=== PATIENT | male | born 1970 | race Hispanic/Latino ===

== ENCOUNTER 2017-12-31 04:33 | Inpatient (IN) | payer MEDICAID ==
--- NOTE | 2017-12-31 04:59 | ED PDOC ---
Arrival/HPI - General Historian: Patient - History of Present Illness Narrative History of Present Illness (Text): 12/31/17 05:03 Patient is a past medical history of hypertension, hyperlipidema, anxiety and alcohol abuse (>12 beers daily) presenting to the emergency room with a complaint of left shoulder pain, anxiety and uncontrollable shaking. He was attempting to sleep but was unable to because he started to feel anxious. He noticed he also shaking uncontrollably in his hands. He has a history of anxiety but has never experienced shaking in his hands before. He is also experiencing sharp, left shoulder that radiates down his arm. This pain started tonight, he denies any trauma or injury to the shoulder. He is nauseous and vomited once prior to coming to the hospital. He is experiencing hot and cold flashes, episodes of diaphoresis and diarrhea. He normally drinks >12 beers a day but only had 2 beers yesterday earlier in the day. Last drink approximately 13 hours ago. He has been through alcohol withdrawal before and has experienced seizures in the past during withdrawal (last seizure 2 years ago). Social: Patient lives in [place], [place] but is currently visiting a friend in [place]. Time/Duration: 1-3 hours Symptom Onset: Sudden Symptom Course: Worsening Quality: Other (shaking) <Albert Kim - Last Filed: 12/31/17 06:27> <Dmitriy Kapoor - Last Filed: 12/31/17 06:43> - General Time Seen by Provider: 12/31/17 04:44 Past Medical History - Provider Review Nursing Documentation Reviewed: Yes - Cardiac Hx Cardiac Disorders: Yes Hx Hypertension: Yes - Pulmonary Hx Respiratory Disorders: Yes Hx Sleep Apnea: Yes - Psychiatric Hx Psychophysiologic Disorder: Yes Hx Anxiety: Yes Hx Substance Use: No (DENIES) - Anesthesia Hx Anesthesia: No <Albert Kim - Last Filed: 12/31/17 06:27> Family/Social History - Physician Review Nursing Documentation Reviewed: Yes Family/Social History: Unknown Family HX Smoking Status: Heavy Smoker > 10 Cigarettes Daily Hx Alcohol Use: Yes Frequency of alcohol use: Few days per week Hx Substance Use: No (DENIES) <Albert Kim - Last Filed: 12/31/17 06:27> Allergies/Home Meds <Albert Kim - Last Filed: 12/31/17 06:27> <Dmitriy Kapoor - Last Filed: 12/31/17 06:43> Allergies/Adverse Reactions: Allergies No Known Allergies Allergy (Verified 12/31/17 04:34) Home Medications: Home Meds Medication Instructions Recorded Confirmed RX: Unobtainable 12/31/17 12/31/17 Review of Systems - Physician Review All systems were reviewed & negative as marked: Yes - Review of Systems Constitutional: Fevers Eyes: absent: Vision Changes ENT: Normal. absent: Sore Throat, Rhinorrhea Respiratory: Normal. absent: SOB, Cough, Sputum, Wheezing Cardiovascular: Normal. absent: Chest Pain, Palpitations, Edema, Calf Pain, MONIQUE, Syncope Gastrointestinal: Abdominal Pain, Diarrhea, Nausea, Vomiting. absent: Constipation, Appetite Changes Genitourinary Male: Normal. absent: Dysuria, Frequency, Hematuria Musculoskeletal: Normal Skin: Normal Neurological: Normal. absent: Headache, Dizziness Endocrine: Diaphoresis Hemo/Lymphatic: Normal. absent: Adenopathy Psychiatric: Anxiety <Albert Kim - Last Filed: 12/31/17 06:27> Physical Exam Vital Signs Reviewed: Yes Temperature: Afebrile Blood Pressure: Hypertensive Pulse: Tachycardic (104bpm on ekg) Respiratory Rate: Normal Appearance: Positive for: Other (Anxious ) Pain Distress: None Mental Status: Positive for: Alert and Oriented X 3 - Systems Exam Head: Present: Atraumatic, Normocephalic Pupils: Present: PERRL Extroacular Muscles: Present: EOMI Conjunctiva: Present: Normal Mouth: Present: Moist Mucous Membranes Nose (External): Present: Atraumatic Nose (Internal): Present: No Active Bleeding, Moist Neck: Present: Normal Range of Motion. No: Meningeal Signs, MIDLINE TENDERNESS, Paraspinal Tenderness Respiratory/Chest: Present: Clear to Auscultation, Good Air Exchange. No: Respiratory Distress, Accessory Muscle Use Cardiovascular: Present: Normal S1, S2, Tachycardic. No: Murmurs Abdomen: No: Tenderness, Distention, Peritoneal Signs, Rebound, Guarding Upper Extremity: Present: Normal Inspection, NORMAL PULSES. No: Cyanosis, Edema Lower Extremity: Present: Normal Inspection, NORMAL PULSES. No: Edema, CALF TENDERNESS Neurological: Present: GCS=15, CN II-XII Intact, Speech Normal, Other (hand tremors b/l) Skin: Present: Warm, Dry, Normal Color. No: Rashes Lymphatic: No: Cervical Adenopathy Psychiatric: Present: Alert, Oriented x 3, Normal Insight, Normal Concentration, Anxious <Albert Kim - Last Filed: 12/31/17 06:27> Vital Signs Temp Pulse Resp BP Pulse Ox 12/31/17 05:08 98.2 F 81 18 145/92 H 96 12/31/17 04:54 98.1 F 107 H 20 151/118 H 96 <KevinDmitriy gotti - Last Filed: 12/31/17 06:43> Medical Decision Making ED Course and Treatment: 12/31/17 04:55 Patient is a 47 year old male with a past medical history of alcohol abuse, anxiety, hypertension and hyperlipidemia presenting to the emergency with shaking and anxiety. Patient states he normally drinks 12 beers or more daily, only had 2 yesterday. Last drink 13 hours ago. hx of alcohol withdrawal with seizures (last seizure 2 years ago) Patient appears to be withdrawing from alcohol Will give Ativan 1mg IVP Labs, EKG and CXR 12/31/17 06:10 Discussed labs with patient. Patient had improvement in tremors but tremors still present. Librium 25mg PO given Hospitalist called to admit patient for alcohol withdrawal. 12/31/17 06:[address] Patel (Hospitalist) in detail. He has accepted patient onto hospitalist service. Patient admitted to remote telemetry for alcohol withdrawal. Re-evaluation Time: 06:10 - Lab Interpretations Lab Results: Laboratory Results - last 24 hr 12/31/17 12/31/17 12/31/17 05:06 05:06 05:06 WBC 9.6 RBC 4.55 Hgb 14.8 Hct 43.1 MCV 94.7 MCH 32.5 MCHC 34.3 RDW 13.4 Plt Count 312 MPV 8.5 Gran % 58.3 Lymph % (Auto) 25.9 Jennings % (Auto) 13.3 H Eos % (Auto) 2.0 Baso % (Auto) 0.5 Gran # 5.57 Lymph # (Auto) 2.5 Jennings # (Auto) 1.3 H Eos # (Auto) 0.2 Baso # (Auto) 0.05 Sodium 139 Potassium 3.5 L Chloride 106 Carbon Dioxide 25 Anion Gap 11 BUN 15 Creatinine 0.7 L Est GFR ( Amer) > 60 Est GFR (Non-Af Amer) > 60 Random Glucose 104 Calcium 8.8 Magnesium 1.8 Total Bilirubin 0.7 AST 47 ALT 62 H Alkaline Phosphatase 75 Troponin I < 0.01 Total Protein 6.7 Albumin 4.1 Globulin 2.6 Albumin/Globulin Ratio 1.6 Lipase 307 H Alcohol, Quantitative < 10 I have reviewed the lab results: Yes - RAD Interpretation Narrative RAD Interpretations (Text): CXR - no acute disease. Radiology Orders: 12/31/17 04:53 CHEST PORTABLE [RAD] Stat Lithopone Charger: ED Physician - EKG Interpretation EKG Interpretation (Text): 12/31/17 06:04 Sinus tach @104bpm, normal axis, poor r wave progression, no acute ST segment elevations or depressions. - no prior ekg for comparison. Interpreted by ED Physician: Yes Type: 12 lead EKG Comparison: No previous EKG avail. - Medication Orders Current Medication Orders: Lorazepam (Ativan) 1 mg IVP ONCE ONE; Protocol Stop: 12/31/17 04:54 <Albert Kim - Last Filed: 12/31/17 06:27> ED Course and Treatment: Impression: Pt seen and evaluated with electromedical equipment repairer. Aware and agree with HPI, clinical findings, plan, and management. Pt, whose past medical history includes hypertension, hyperlipidemia, anxiety, and alcohol abuse, presented for anxiety, shaking, and left shoulder pain. Pt's last alcoholic drink was yesterday afte rnoon. Plan: -- EKG -- Chest X-ray -- Labs, troponin, lipase, alcohol level -- Urinalysis, urine drug screen -- IV fluids -- Ativan -- Zofran -- Reassess and disposition - RAD Interpretation Radiology Orders: 12/31/17 04:53 CHEST PORTABLE [RAD] Stat - EKG Interpretation Interpreted by ED Physician: Yes Type: 12 lead EKG - Medication Orders Current Medication Orders: Sodium Chloride (Sodium Chloride 0.9%) 1,000 mls @ 999 mls/hr IV .Q1H1M STA Stop: 12/31/17 06:08 Last Admin: 12/31/17 05:14 Dose: 999 mls/hr eMAR Start Stop Document 12/31/17 05:14 RG (Rec: 12/31/17 05:15 [id number]) Intravenous Solution Start Date 12/31/17 Start Time 05:14 Discontinued Medications Lorazepam (Ativan) 1 mg IVP ONCE ONE; Protocol Stop: 12/31/17 04:54 Last Admin: 12/31/17 05:15 Dose: 1 mg IVP Administration Document 12/31/17 05:15 RG (Rec: 12/31/17 05:15 [id number]) Charges for Administration # of IVP Administrations 1 Ondansetron HCl (Zofran Inj) 4 mg IVP STAT STA Stop: 12/31/17 05:05 Last Admin: 12/31/17 05:17 Dose: 4 mg IVP Administration Document 12/31/17 05:17 (Rec: 12/31/17 05:17 [id number]) Charges for Administration # of IVP Administrations 1 <Dmitriy Kapoor - Last Filed: 12/31/17 06:43> - PA / SURGICAL INSTRUMENTS INSPECTOR / Resident Statement / has reviewed & agrees with the documentation as recorded. / has examined the patient and agrees with the treatment plan. <Dmitriy Kapoor - Last Filed: 12/31/17 06:43> Disposition/Present on Arrival - Present on Arrival Any Indicators Present on Arrival: No History of DVT/PE: No History of Uncontrolled Diabetes: No Urinary Catheter: No History of Decub. Ulcer: No History Surgical Site Infection Following: None - Disposition Have Diagnosis and Disposition been Completed?: Yes Disposition Time: 06:27 Patient Plan: Admission, Telemetry (remote) <Albert Kim - Last Filed: 12/31/17 06:27> <Dmitriy Kapoor - Last Filed: 12/31/17 06:43> - Disposition Diagnosis: Alcohol withdrawal Disposition: HOSPITALIZED Patient Problems: Current Active Problems Problem Status Onset Alcohol withdrawal Acute Condition: GUARDED
[2017-12-31] MEDS ORDERED: Sodium Chloride 0.9% 1,000 ML IV STA (05:08)
[2017-12-31 05:32] LABS: HEMOGLOBIN 14.8 g/dL (14.0-18.0); MEAN CELL VOLUME 94.7 fl (80.0-105.0); MEAN CORPUSCULAR HEMOGLOBIN 32.5 pg (25.0-35.0); MEAN CORPUSCULAR HGB CONC 34.3 g/dl (31.0-37.0); RBC 4.55 10^6/uL (3.5-6.1); RED CELL DISTRIBUTION WIDTH 13.4 % (11.5-14.5); WHITE BLOOD COUNT 9.6 10^3/ul (4.5-11.0)
[2017-12-31 05:33] LABS: BASO # 0.05 K/mm3 (0.0-2.0); BASO % 0.5 % (0.0-3.0); EOS # 0.2 (0.0-0.7); GRAN # 5.57 (1.4-6.5); GRAN % 58.3 % (50.0-68.0); LYMPH # 2.5 (1.2-3.4); LYMPH % 25.9 % (22.0-35.0); MEAN PLATELET VOLUME 8.5 fl (7.0-11.0); MONO # 1.3 (0.1-0.6); MONO % 13.3 % (1.0-6.0)
[2017-12-31 05:58] LABS: ALB/GLOB RATIO 1.6 (1.1-1.8); ALBUMIN 4.1 g/dL (3.0-4.8); ALT/SGPT 62 U/L (7-56); AST/SGOT 47 U/L (17-59); BLOOD UREA NITROGEN 15 mg/dL (7-21); CALCIUM 8.8 mg/dL (8.4-10.5); GFR NON-AFRICAN AMERICAN > 60; LIPASE 307 U/L (23-300)
[2017-12-31 06:08] LABS: TROPONIN I < 0.01 ng/mL
[2017-12-31] MEDS ORDERED: Multivitamin (MVI) 10 ML, Thiamine 100 MG, Folic Acid 1 MG in Sodium Chloride 0.9% 1,00... IV ONE (06:33)
[2017-12-31 06:39] LABS: URINE BILIRUBIN NEGATIVE (NEGATIVE); URINE BLOOD SMALL (NEGATIVE); URINE GLUCOSE (UA) NEGATIVE (NEGATIVE); URINE LEUKOCYTE ESTERASE NEGATIVE Leu/uL (NEGATIVE); URINE PROTEIN NEGATIVE mg/dL (<30 mg/dL); URINE UROBILINOGEN 0.2 E.U./dL (<1 E.U./dL)
[2017-12-31 06:49] LABS: URINE APPEARANCE CLEAR (CLEAR); URINE COLOR LIGHT YELLOW (YELLOW)
[2017-12-31 07:07] LABS: URINE BACTERIA SMALL (NEG); URINE EPITHELIAL CELLS 0 - 2 /hpf (0-5); URINE WBC 0 - 2 /hpf (0-6)
[2017-12-31 07:27] LABS: BARBITURATES, UR NEGATIVE (NEGATIVE); BENZODIAZEPINES, UR POSITIVE (NEGATIVE); OPIATES, UR NEGATIVE (NEGATIVE); PHENCYCLIDINE, UR NEGATIVE (NEGATIVE)
[2017-12-31] MEDS ORDERED: Potassium Chloride 40 mEq/30 ml LIQ UD PO ONE (07:48)
[2017-12-31] MEDS ORDERED: Magnesium Sulfate 2 gm/50 ml 2 GM/50 ML BAG IVPB ONE (07:48)
--- NOTE | 2017-12-31 08:38 | CP.PCM.HP ---
<Julio Jennings - Last Filed: 12/31/17 08:26> History of Present Illness - History of Present Illness History of Present Illness: Hospitalist Service H&P Julio Jennings, PGY-3 CC: Shortness of breath and tremors overnight This is a 47 yo M with PMH of hypertension, hyperlipidema, anxiety, alcohol abuse, and hx of seizures with alcohol withdrawal who presented to [facility] ED with complaint of anxiety, shortness of breath, and uncontrollable shaking while trying to sleep. Reports unable to fall asleep, which made him anxious, and then he noticed uncontrolled tremors in both hands and felt short of breath. He also complains of left shoulder pain travelling down his arm, not currently present, no clear trigger. Reports one episode of emesis after tremors began and persistent nausea, and denies hematemesis/bilious emesis; only describes emesis as "dark." Admits to chronic alcohol use (claims was off but started again, unable to state when restarted), up to 12 beers per day, but reports only 2 beers yesterday, last one at approx 4:30pm (1630). Denies current chest pain, shortness of breath, cough, hemoptysis, constipation, focal or generalized weakness, loss of sensation, vision changes. Admits to nausea, intermittent loose stools over last 2-3 days, and still some tremors present. Of note, patient was anxious throughout the interview and exam, asking if he was going to have a heart monitor while admitted, and when asked why, states his heart stopped once, and that he thinks he needs a pacemaker. Unable to provide further details about "heart stopping," including where and when it occurred. Also asked multiple times if med staff would be aware if he stopped breathing, stating that he stopped breathing once. Patient also poor historian, not able to relay what medications he is on, not sure what pharmacy he goes to. PMH: as above PSH: denies Soc Hx: Admits tobacco (1ppd for ~ 30 yrs), admits alcohol (up to 12 beers daily, last drink ~16 hrs prior), admits weekly marijuana, admits hx of cocaine but reports has been off for years, denies other illicits Fam Hx: pt unaware of family hx PMD: Dr. Etienne Present on Admission - Present on Admission Any Indicators Present on Admission: No History of DVT/PE: No History of Uncontrolled Diabetes: No Urinary Catheter: No Review of Systems - Review of Systems All systems: reviewed and no additional remarkable complaints except (as per HPI) Past Patient History - Past Social History Smoking Status: Heavy Smoker > 10 Cigarettes Daily - CARDIAC Hx Cardiac Disorders: Yes Hx Hypertension: Yes - PULMONARY Hx Respiratory Disorders: Yes Hx Sleep Apnea: Yes - PSYCHIATRIC Hx Psychophysiologic Disorder: Yes Hx Anxiety: Yes Hx Substance Use: No (DENIES) - SURGICAL HISTORY Hx Surgeries: No - ANESTHESIA Hx Anesthesia: No Meds Allergies/Adverse Reactions: Allergies Allergy/AdvReac Type Severity Reaction Status Date / Time No Known Allergies Allergy Verified 12/31/17 04:34 Physical Exam - Constitutional Appears: Non-toxic, No Acute Distress, Other (Anxious) - Head Exam Head Exam: ATRAUMATIC, NORMAL INSPECTION, NORMOCEPHALIC - Eye Exam Eye Exam: EOMI, Normal appearance. absent: Conjunctival injection, Scleral icterus Pupil Exam: absent: Fixed, Irregular - ENT Exam ENT Exam: Mucous Membranes Moist - Neck Exam Neck exam: Positive for: Full Rom, Normal Inspection. Negative for: Thyromegaly - Respiratory Exam Respiratory Exam: Clear to Auscultation Bilateral, NORMAL BREATHING PATTERN. absent: Accessory Muscle Use, Chest Wall Tenderness, Decreased Breath Sounds, Prolonged Expiratory Phase, Rales, Rhonchi, Wheezes, Respiratory Distress - Cardiovascular Exam Cardiovascular Exam: REGULAR RHYTHM, RRR, +S1, +S2. absent: Bradycardia, Tachycardia, Irregular Rhythm, JVD, +S4 Additional comments: HR 80's consistently on bedside monitor during interview and exam - GI/Abdominal Exam GI & Abdominal Exam: Normal Bowel Sounds, Soft. absent: Diminished Bowel Sounds, Distended, Firm, Hyperactive Bowel Sounds, Hypoactive Bowel Sounds, Rigid, Tenderness - Extremities Exam Extremities exam: Positive for: full ROM, normal capillary refill, normal inspection, pedal pulses present (+2 radials, dorsalis pedis, and posterior tibials bilaterally). Negative for: calf tenderness, joint swelling, pedal edema, tenderness - Back Exam Back exam: absent: CVA tenderness (L), CVA tenderness (R) - Neurological Exam Neurological exam: Alert, Oriented x3 Additional comments: awake and alert, following commands appropriately, moving all extremities spontaneously, bilateral UE tremor that appears exaggerated in R hand as compared to left, no asterixis elicited on exam, motor strength 5/5 in bilateral extremity pairs - Psychiatric Exam Psychiatric exam: Anxious - Skin Skin Exam: Dry, Intact, Normal Color, Warm Results - Vital Signs Recent Vital Signs: Last Vital Signs Temp 98.2 F 12/31/17 05:08 Pulse 87 12/31/17 06:33 Resp 189 H 12/31/17 06:33 BP 145/88 12/31/17 06:33 Pulse Ox 99 12/31/17 06:33 - Labs Result Diagrams: 12/31/17 05:06 12/31/17 05:06 Labs: Laboratory Results - last 24 hr 12/31/17 12/31/17 12/31/17 05:05 05:06 05:06 WBC 9.6 RBC 4.55 Hgb 14.8 Hct 43.1 MCV 94.7 MCH 32.5 MCHC 34.3 RDW 13.4 Plt Count 312 MPV 8.5 Gran % 58.3 Lymph % (Auto) 25.9 Gila % (Auto) 13.3 H Eos % (Auto) 2.0 Baso % (Auto) 0.5 Gran # 5.57 Lymph # (Auto) 2.5 Gila # (Auto) 1.3 H Eos # (Auto) 0.2 Baso # (Auto) 0.05 Sodium 139 Potassium 3.5 L Chloride 106 Carbon Dioxide 25 Anion Gap 11 BUN 15 Creatinine 0.7 L Est GFR ( Amer) > 60 Est GFR (Non-Af Amer) > 60 POC Glucose (mg/dL) 98 Random Glucose 104 Calcium 8.8 Magnesium 1.8 Total Bilirubin 0.7 AST 47 ALT 62 H Alkaline Phosphatase 75 Troponin I < 0.01 Total Protein 6.7 Albumin 4.1 Globulin 2.6 Albumin/Globulin Ratio 1.6 Lipase 307 H Urine Color Urine Appearance Urine pH Ur Specific [place] Urine Protein Urine Glucose (UA) Urine Ketones Urine Blood Urine Nitrate Urine Bilirubin Urine Urobilinogen Ur Leukocyte Esterase Urine RBC Urine WBC Ur Epithelial Cells Urine Bacteria Urine Other Urine Opiates Screen Urine Methadone Screen Ur Barbiturates Screen Ur Phencyclidine Scrn Ur Amphetamines Screen U Benzodiazepines Scrn U Oth Cocaine Metabols U Cannabinoids Screen Alcohol, Quantitative 12/31/17 12/31/17 12/31/17 05:06 06:19 06:19 WBC RBC Hgb Hct MCV MCH MCHC RDW Plt Count MPV Gran % Lymph % (Auto) Gila % (Auto) Eos % (Auto) Baso % (Auto) Gran # Lymph # (Auto) Gila # (Auto) Eos # (Auto) Baso # (Auto) Sodium Potassium Chloride Carbon Dioxide Anion Gap BUN Creatinine Est GFR ( Amer) Est GFR (Non-Af Amer) POC Glucose (mg/dL) Random Glucose Calcium Magnesium Total Bilirubin AST ALT Alkaline Phosphatase Troponin I Total Protein Albumin Globulin Albumin/Globulin Ratio Lipase Urine Color Light yellow Urine Appearance Clear Urine pH 6.0 Ur Specific [place] 1.025 Urine Protein Negative Urine Glucose (UA) Negative Urine Ketones Trace H Urine Blood Small H Urine Nitrate Negative Urine Bilirubin Negative Urine Urobilinogen 0.2 Ur Leukocyte Esterase Negative Urine RBC 2 - 5 Urine WBC 0 - 2 Ur Epithelial Cells 0 - 2 Urine Bacteria Small Urine Other Usperm Urine Opiates Screen Negative Urine Methadone Screen Negative Ur Barbiturates Screen Negative Ur Phencyclidine Scrn Negative Ur Amphetamines Screen Negative U Benzodiazepines Scrn Positive H U Oth Cocaine Metabols Negative U Cannabinoids Screen Positive H Alcohol, Quantitative < 10 Assessment & Plan - Assessment and Plan (Free Text) Assessment: This is a 47 yo M with PMH of hypertension, hyperlipidema, anxiety, alcohol abuse, and hx of seizures with alcohol withdrawal who presented to [facility] ED with complaint of anxiety, shortness of breath, and uncontrollable shaking while trying to sleep, likely all 2/2 alcohol withdrawal. He is being admitted for alcohol withdrawal. Plan: 1) Tremors/Anxiety/Emesis -ddx: EtOH withdrawal vs ACS vs anxiety itself vs substance abuse -UTox positive for marijuana and benzos, unable to account for presence of benzos as patient unaware of home meds -Trop x1 negative, EKG only notable for sinus tachy, and HR improved to 80's after ativan, so more likely tachy 2/2 withdrawal, less likely ACS Will repeat trop and EKG tomorrow AM -Alcohol level < 10 on arrival, and last reported drink ~16 hrs prior, so likely already withdrawing As per ED, improvement but no resolution of tremors with initial dose of Ativan given in ED Continue Ativan IV, ordered 1mg q6 rowan and 1mg q2 prn CIWA protocol activated Continue Banana bag through today, will switch to NS/Folic Acid/Thiamine tomorrow -Emesis also likely 2/2 withdrawal; less likely pancreatitis as only 1x emesis, no abdominal tenderness, and lipase only 307 QTc 478, so will start Zofran 4mg IV q8 PRN -Seizure precautions given hx of seizures with prior withdrawals 2) Shortness of breath -likely 2/2 anxiety/withdrawal +/- component from chronic tobacco abuse -CXR in ED reviewed, notable for some pulmonary vasculature prominence but oth erwise unremarkable -Satting well on room air, no supplemental O2 needed at this time -Nicotine patch ordered, 14mg/day TD 3) HTN -BP was elevated on arrival but improved after ativan in ED, so elevation may be 2/2 anxiety -unknown home medication (if any) for BP control, but given current range of 120's-140's systolic, can start on low dose antiHTN Lisinopril 5mg daily ordered 4) HLD -lipid panel ordered, will follow up 5) Anxiety -benzos for EtOH withdrawal will also cover for anxiety -unknown home medications, unknown if on medication for anxiety Will hold off on any additional anti-anxiety meds at this time Dispo: Remote telemetry, undergoing alcohol withdrawal, CIWA protocol ordered and ROWAN/PRN Ativan FEN: HHD Access: Peripheral IVs Consults: N/A Ppx: Protonix for GI, SCDs for DVT Patient reviewed and discussed with attending, Dr. Rizo Decision To Admit - Pt Status Changed To: Hospital Disposition Of: Inpatient Admission - Admit Certification Admit to Inpatient:: After my assessment, the patient will require hospitalization for at least two midnights. This is because of the severity of symptoms shown, intensity of services needed, and/or the medical risk in this patient being treated as an outpatient. - . Bed Request Type: Remote Telemetry <Pascual Rizo - Last Filed: 12/31/17 12:51> Results - Vital Signs Recent Vital Signs: Last Vital Signs Temp 98.6 F 12/31/17 12:42 Pulse 76 12/31/17 12:42 Resp 20 12/31/17 12:42 BP 136/100 H 12/31/17 12:42 Pulse Ox 95 12/31/17 08:35 - Labs Result Diagrams: 12/31/17 05:06 12/31/17 05:06 Labs: Laboratory Results - last 24 hr 12/31/17 12/31/17 12/31/17 05:05 05:06 05:06 WBC 9.6 RBC 4.55 Hgb 14.8 Hct 43.1 MCV 94.7 MCH 32.5 MCHC 34.3 RDW 13.4 Plt Count 312 MPV 8.5 Gran % 58.3 Lymph % (Auto) 25.9 Gila % (Auto) 13.3 H Eos % (Auto) 2.0 Baso % (Auto) 0.5 Gran # 5.57 Lymph # (Auto) 2.5 Gila # (Auto) 1.3 H Eos # (Auto) 0.2 Baso # (Auto) 0.05 Sodium 139 Potassium 3.5 L Chloride 106 Carbon Dioxide 25 Anion Gap 11 BUN 15 Creatinine 0.7 L Est GFR ( Amer) > 60 Est GFR (Non-Af Amer) > 60 POC Glucose (mg/dL) 98 Random Glucose 104 Calcium 8.8 Magnesium 1.8 Total Bilirubin 0.7 AST 47 ALT 62 H Alkaline Phosphatase 75 Troponin I < 0.01 Total Protein 6.7 Albumin 4.1 Globulin 2.6 Albumin/Globulin Ratio 1.6 Triglycerides Cholesterol LDL Cholesterol Direct HDL Cholesterol Lipase 307 H Urine Color Urine Appearance Urine pH Ur Specific [place] Urine Protein Urine Glucose (UA) Urine Ketones Urine Blood Urine Nitrate Urine Bilirubin Urine Urobilinogen Ur Leukocyte Esterase Urine RBC Urine WBC Ur Epithelial Cells Urine Bacteria Urine Other Urine Opiates Screen Urine Methadone Screen Ur Barbiturates Screen Ur Phencyclidine Scrn Ur Amphetamines Screen U Benzodiazepines Scrn U Oth Cocaine Metabols U Cannabinoids Screen Alcohol, Quantitative 12/31/17 12/31/17 12/31/17 05:06 06:19 06:19 WBC RBC Hgb Hct MCV MCH MCHC RDW Plt Count MPV Gran % Lymph % (Auto) Gila % (Auto) Eos % (Auto) Baso % (Auto) Gran # Lymph # (Auto) Gila # (Auto) Eos # (Auto) Baso # (Auto) Sodium Potassium Chloride Carbon Dioxide Anion Gap BUN Creatinine Est GFR ( Amer) Est GFR (Non-Af Amer) POC Glucose (mg/dL) Random Glucose Calcium Magnesium Total Bilirubin AST ALT Alkaline Phosphatase Troponin I Total Protein Albumin Globulin Albumin/Globulin Ratio Triglycerides Cholesterol LDL Cholesterol Direct HDL Cholesterol Lipase Urine Color Light yellow Urine Appearance Clear Urine pH 6.0 Ur Specific [place] 1.025 Urine Protein Negative Urine Glucose (UA) Negative Urine Ketones Trace H Urine Blood Small H Urine Nitrate Negative Urine Bilirubin Negative Urine Urobilinogen 0.2 Ur Leukocyte Esterase Negative Urine RBC 2 - 5 Urine WBC 0 - 2 Ur Epithelial Cells 0 - 2 Urine Bacteria Small Urine Other Usperm Urine Opiates Screen Negative Urine Methadone Screen Negative Ur Barbiturates Screen Negative Ur Phencyclidine Scrn Negative Ur Amphetamines Screen Negative U Benzodiazepines Scrn Positive H U Oth Cocaine Metabols Negative U Cannabinoids Screen Positive H Alcohol, Quantitative < 10 12/31/17 08:00 WBC RBC Hgb Hct MCV MCH MCHC RDW Plt Count MPV Gran % Lymph % (Auto) Gila % (Auto) Eos % (Auto) Baso % (Auto) Gran # Lymph # (Auto) Gila # (Auto) Eos # (Auto) Baso # (Auto) Sodium Potassium Chloride Carbon Dioxide Anion Gap BUN Creatinine Est GFR ( Amer) Est GFR (Non-Af Amer) POC Glucose (mg/dL) Random Glucose Calcium Magnesium Total Bilirubin AST ALT Alkaline Phosphatase Troponin I Total Protein Albumin Globulin Albumin/Globulin Ratio Triglycerides 55 Cholesterol 189 LDL Cholesterol Direct 101 HDL Cholesterol 82 H Lipase Urine Color Urine Appearance Urine pH Ur Specific [place] Urine Protein Urine Glucose (UA) Urine Ketones Urine Blood Urine Nitrate Urine Bilirubin Urine Urobilinogen Ur Leukocyte Esterase Urine RBC Urine WBC Ur Epithelial Cells Urine Bacteria Urine Other Urine Opiates Screen Urine Methadone Screen Ur Barbiturates Screen Ur Phencyclidine Scrn Ur Amphetamines Screen U Benzodiazepines Scrn U Oth Cocaine Metabols U Cannabinoids Screen Alcohol, Quantitative Attending/Attestation - Attestation I have personally seen and examined this patient.: Yes I have fully participated in the care of the patient.: Yes I have reviewed all pertinent clinical information: Yes
[2017-12-31 08:40] VITALS: O2SAT 95
[2017-12-31 09:45] LABS: HDL CHOLESTEROL 82 mg/dL (29-60)
[2017-12-31 09:56] LABS: LDL CHOLESTEROL 101 mg/dL (0-129)
--- NOTE | 2017-12-31 11:05 | RAD ---
Date of service: 12/31/2017 HISTORY: cp COMPARISON: No prior. FINDINGS: LUNGS: No active pulmonary disease. PLEURA: No significant pleural effusion identified, no pneumothorax apparent. CARDIOVASCULAR: Normal. OSSEOUS STRUCTURES: No significant abnormalities. VISUALIZED UPPER ABDOMEN: Normal. OTHER FINDINGS: None. IMPRESSION: No active disease.
--- NOTE | 2017-12-31 15:17 | CARD ---
APPROVED REPORT Date of service: 12/31/2017 EKG Measurement Heart [id number] <Conclusion> Sinus tachycardia Possible Left atrial enlargement Possible Anterior infarct, age undetermined Abnormal ECG
[2017-12-31 16:40] VITALS: BMI 26.4
[2017-12-31] MEDS: Folic Acid 1 MG, Thiamine 100 MG, Multivitamin (MVI) 10 ML, Potassium Chloride 20 MEQ i... IV SCH ×2 (19:55→22:48)
[2018-01-01] MEDS ORDERED: Sodium Chloride 0.9% 1,000 ML IV SCH (06:00)
[2018-01-01 07:02] LABS: BASO # 0.06 K/mm3 (0.0-2.0); BASO % 0.8 % (0.0-3.0); EOS # 0.3 (0.0-0.7); EOS % 3.2 % (1.5-5.0); GRAN # 4.01 (1.4-6.5); GRAN % 51.1 % (50.0-68.0); HEMOGLOBIN 14.3 g/dL (14.0-18.0); LYMPH # 2.4 (1.2-3.4); LYMPH % 31.1 % (22.0-35.0); MEAN CELL VOLUME 95.8 fl (80.0-105.0); MEAN CORPUSCULAR HEMOGLOBIN 31.7 pg (25.0-35.0); MEAN CORPUSCULAR HGB CONC 33.1 g/dl (31.0-37.0); MEAN PLATELET VOLUME 8.7 fl (7.0-11.0); MONO # 1.1 (0.1-0.6); MONO % 13.8 % (1.0-6.0); RBC 4.51 10^6/uL (3.5-6.1); RED CELL DISTRIBUTION WIDTH 13.3 % (11.5-14.5); WHITE BLOOD COUNT 7.8 10^3/ul (4.5-11.0)
[2018-01-01 07:15] LABS: TROPONIN I < 0.01 ng/mL
[2018-01-01 07:26] LABS: ALB/GLOB RATIO 1.4 (1.1-1.8); ALBUMIN 3.8 g/dL (3.0-4.8); ALT/SGPT 54 U/L (7-56); AST/SGOT 42 U/L (17-59); BLOOD UREA NITROGEN 10 mg/dL (7-21); CALCIUM 8.9 mg/dL (8.4-10.5); GFR NON-AFRICAN AMERICAN > 60
--- NOTE | 2018-01-01 12:59 | CP.PCM.PN ---
Subjective - Date & Time of Evaluation Date of Evaluation: 01/01/18 Time of Evaluation: 12:56 - Subjective Subjective: INTERNAL MEDICINE PROGRESS NOTE FOR DR. ARACELIS Beltran PGY-1 Pt seen and examined at bedside this am. He reports his tremors are improving and is not having symptoms of withdrawal. He reports back pain, that he claims he takes a "muscle relaxer" at home. He also complains of of symptoms of epigastric pain that he experiences due to his GERD. He reports his tremors have improved with current management. He denies fevers, chills, headache, dizziness, chest pain, palpitations, shortness of breath, nausea, vomiting, constipation, diarrhea, dysuria. Objective - Vital Signs/Intake and Output Vital Signs (last 24 hours): Temp Pulse Resp BP Pulse Ox 98.0 F 78 16 148/113 H 95 01/01/18 06:00 01/01/18 10:35 01/01/18 06:00 01/01/18 10:35 12/31/17 08:35 Intake and Output: 01/01/18 01/01/18 06:59 18:59 Intake Total 1443 Output Total 3 Balance 1440 - Medications Medications: Current Medications Chlordiazepoxide (Librium) 25 mg PO Q6H PRN; Protocol PRN Reason: Anxiety Last Admin: 01/01/18 11:50 Dose: 25 mg Sodium Chloride (Sodium Chloride 0.9%) 1,000 mls @ 100 mls/hr IV .Q10H ROWAN Last Admin: 01/01/18 12:02 Dose: 100 mls/hr Lisinopril (Zestril) 5 mg PO DAILY ROWAN Last Admin: 01/01/18 10:35 Dose: 5 mg Lorazepam (Ativan) 1 mg IVP Q6H ROWAN; Protocol Last Admin: 01/01/18 08:27 Dose: 1 mg Lorazepam (Ativan) 1 mg IVP Q6H PRN; Protocol PRN Reason: Symptoms of alcohol withdrawl Nicotine (Nicoderm Cq) 1 patch TD DAILY ROWAN Last Admin: 01/01/18 10:35 Dose: 1 patch Ondansetron HCl (Zofran Inj) 4 mg IVP Q8H PRN PRN Reason: Nausea/Vomiting Pantoprazole Sodium (Protonix Inj) 40 mg IVP DAILY ROWAN Last Admin: 01/01/18 10:45 Dose: 40 mg - Labs Labs: 01/01/18 05:30 01/01/18 05:30 - Constitutional Appears: Well, Non-toxic, No Acute Distress - Head Exam Head Exam: ATRAUMATIC, NORMAL INSPECTION - Eye Exam Eye Exam: EOMI, Normal appearance - ENT Exam ENT Exam: Mucous Membranes Moist, Normal Exam - Neck Exam Neck Exam: Full ROM. absent: Meningismus - Respiratory Exam Respiratory Exam: Clear to Ausculation Bilateral, NORMAL BREATHING PATTERN - Cardiovascular Exam Cardiovascular Exam: REGULAR RHYTHM, +S1, +S2 - GI/Abdominal Exam GI & Abdominal Exam: Soft, Normal Bowel Sounds - Extremities Exam Extremities Exam: Normal Inspection. absent: Calf Tenderness - Back Exam Back Exam: NORMAL INSPECTION - Neurological Exam Neurological Exam: Alert, Awake, Oriented x3 - Psychiatric Exam Psychiatric exam: Normal Affect, Normal Mood - Skin Skin Exam: Dry, Intact, Warm Assessment and Plan - Assessment and Plan (Free Text) Assessment: 47 yo M with PMH of hypertension, hyperlipidema, anxiety, alcohol abuse, and hx of seizures with alcohol withdrawal who presented [place] [facility] with complaint of anxiety, shortness of breath, and uncontrollable shaking while trying to sleep, likely all 2/2 alcohol withdrawal. He is being admitted for alcohol withdrawal Plan: 1) Tremors/Anxiety/Emesis -ddx: EtOH withdrawal vs ACS vs anxiety itself vs substance abuse -UTox positive for marijuana and benzos, unable to account for presence of benzos as patient unaware of home meds -Trop x1 negative, EKG only notable for sinus tachy, and HR improved to 80's after ativan, so more likely tachy 2/2 withdrawal, less likely ACS Will repeat trop and EKG tomorrow AM -Alcohol level < 10 on arrival, and last reported drink ~16 hrs prior, so likely already withdrawing As per ED, improvement but no resolution of tremors with initial dose of Ativan given in ED Continue librium 50mg q6h, Continue Ativan 1mg q4h prn CIWA protocol activated Start NS, po, multivitamin, thiamine -Emesis also likely 2/2 withdrawal; less likely pancreatitis as only 1x emesis, no abdominal tenderness, and lipase only 307 QTc 478, so will start Zofran 4mg IV q8 PRN -Seizure precautions given hx of seizures with prior withdrawals 2) Shortness of breath likely 2/2 anxiety/withdrawal +/- component from chronic tobacco abuse CXR in ED reviewed, notable for some pulmonary vasculature prominence but otherwise unremarkable Saturating well on room air, no supplemental O2 needed at this time Nicotine patch ordered, 14mg/day TD 3) HTN BP was elevated on arrival but improved after ativan in ED, so elevation may be 2/2 anxiety unknown home medication (if any) for BP control, but given current range of 120's-140's systolic, can start on low dose antiHTN Lisinopril 5mg daily ordered 4) HLD Lipid panel wnl 5) Anxiety benzos for EtOH withdrawal will also cover for anxiety unknown home medications, unknown if on medication for anxiety Will hold off on any additional anti-anxiety meds at this time 6) Back Pain Likely musculoskeletal Start flexeral 5mg po Start warm compresses for back pain Dispo: Discontinue telemetry, undergoing alcohol withdrawal, CIWA protocol ord ered and ROWAN/PRN librium/ativan FEN: HHD Access: Peripheral IVs Consults: N/A Ppx: Protonix for GI, SCDs for DVT Patient reviewed and discussed with attending, Dr. Bah
[2018-01-01 14:03] VITALS: BP 119/85; PULSE 85; RESP 19; TEMP 98.7
--- NOTE | 2018-01-01 14:45 | CARD ---
APPROVED REPORT Date of service: 01/01/2018 EKG Measurement Heart [id number] [id number] <Conclusion> Normal sinus rhythm Early repolarization Normal ECG
--- NOTE | 2018-01-01 15:29 | CON ---
DATE: 01/01/2018 HISTORY OF PRESENT ILLNESS: In short, the patient is a 47-year-old male with not known previous psychiatric history. The patient has history of alcohol abuse more than 12 beers a day. The patient was admitted on the medical site for left shoulder pain as well as uncontrollable shaking. Psych consult was called because the patient had experienced anxiety. The patient was seen and examined. 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 The patient is aware of the circumstances of his admission to the medical site. The patient reported that he was looking for psychiatrist for his anxiety. The patient reported that he is in the process of obtaining appointment. The patient reported that he was feeling more anxious lately, but denied any thoughts of killing himself or others. The patient came to the hospital because he was afraid that he is going to because of anxiety. The patient reported that he is not on any psychotropic medication, but gave permission to talk to the pharmacy and we will confirm that medication list. Vital signs reviewed. Temperature 98, pulse is 78, blood pressure 148/113, respirations 16. Medications reviewed. The patient is on Librium 25 mg p.o. every 6 hours p.r.n., lisinopril, Ativan, Nicoderm, Zofran, Protonix, sodium chloride. Labs reviewed. Most recent was from today. There are no signs of leukocytosis. Lipase is 307. Urinalysis showed blood small. Toxicology was positive for benzodiazepines as well as cannabis. Microbiology reviewed. MENTAL STATUS EXAMINATION: The patient presented to be alert, somewhat oddly related, intense eye contact at times. Mood described as, I was feeling anxious that is why I came to the hospital. Affect was constricted, but reactive. At times, the patient is smiling. Majority of the time related to the topics of the conversation. Thought process seems to be scattered, but not acutely psychotic, but mildly disorganized. The patient denied thoughts of harming himself or others. Denied intent or plan. Insight and judgment seems to be fair. Impulses are well controlled. IMPRESSION: The patient was admitted to the medical site for alcohol withdrawal syndrome. Rule out mood disorder due to alcohol consumption or alcohol-induced mood disorder. This automotive service writer cannot exclude that the patient is mildly disorganized because he is in delirium stage. We will start Seroquel at the nighttime as needed for psychosis. PLAN: The patient is on Librium as well as on benzodiazepines for alcohol withdrawals. We will confirm medication from the pharmacy. The patient might benefit from the Seroquel at the nighttime to clear his psychotic symptoms and sleep better. Meanwhile, the patient needs to be on CIWA protocol and p.r.n. medications, benzodiazepines need to be given. Also, multivitamins, thiamine and folic acid should be given. We will follow up and advise accordingly. Thank you very much for letting me participate in the care of your patient. Billie Medina MD
--- NOTE | 2018-01-01 17:26 | CP.PCM.DIS ---
<Juliet Beltran - Last Filed: 01/01/18 17:56> Provider - Provider Date of Admission: 12/31/17 06:12 Attending physician: Andrae Bah MD Primary care physician: Lolly Etienne MD Consults: Psychiatry: Dr. Medina Time Spent in preparation of Discharge (in minutes): 45 Hospital Course - Lab Results Lab Results: Most Recent Lab Values WBC 7.8 10^3/ul (4.5-11.0) 01/01/18 05:30 RBC 4.51 10^6/uL (3.5-6.1) 01/01/18 05:30 Hgb 14.3 g/dL (14.0-18.0) 01/01/18 05:30 Hct 43.2 % (42.0-52.0) 01/01/18 05:30 MCV 95.8 fl (80.0-105.0) 01/01/18 05:30 MCH 31.7 pg (25.0-35.0) 01/01/18 05:30 MCHC 33.1 g/dl (31.0-37.0) 01/01/18 05:30 RDW 13.3 % (11.5-14.5) 01/01/18 05:30 Plt Count 303 10^3/uL (120.0-450.0) 01/01/18 05:30 MPV 8.7 fl (7.0-11.0) 01/01/18 05:30 Gran % 51.1 % (50.0-68.0) 01/01/18 05:30 Lymph % (Auto) 31.1 % (22.0-35.0) 01/01/18 05:30 Winkler % (Auto) 13.8 % (1.0-6.0) H 01/01/18 05:30 Eos % (Auto) 3.2 % (1.5-5.0) 01/01/18 05:30 Baso % (Auto) 0.8 % (0.0-3.0) 01/01/18 05:30 Gran # 4.01 (1.4-6.5) 01/01/18 05:30 Lymph # (Auto) 2.4 (1.2-3.4) 01/01/18 05:30 Winkler # (Auto) 1.1 (0.1-0.6) H 01/01/18 05:30 Eos # (Auto) 0.3 (0.0-0.7) 01/01/18 05:30 Baso # (Auto) 0.06 K/mm3 (0.0-2.0) 01/01/18 05:30 Sodium 135 mmol/L (132-148) 01/01/18 05:30 Potassium 4.1 mmol/L (3.6-5.0) 01/01/18 05:30 Chloride 104 mmol/L (98-107) 01/01/18 05:30 Carbon Dioxide 25 mmol/L (21-33) 01/01/18 05:30 Anion Gap 11 (10-20) 01/01/18 05:30 BUN 10 mg/dL (7-21) 01/01/18 05:30 Creatinine 0.8 mg/dl (0.8-1.5) 01/01/18 05:30 Est GFR ( Amer) > 60 01/01/18 05:30 Est GFR (Non-Af Amer) > 60 01/01/18 05:30 POC Glucose (mg/dL) 98 mg/dL (65-110) 12/31/17 05:05 Random Glucose 103 mg/dL (70-110) 01/01/18 05:30 Calcium 8.9 mg/dL (8.4-10.5) 01/01/18 05:30 Phosphorus 3.2 mg/dL (2.5-4.5) 01/01/18 05:30 Magnesium 2.3 mg/dL (1.7-2.2) H 01/01/18 05:30 Total Bilirubin 1.0 mg/dL (0.2-1.3) 01/01/18 05:30 AST 42 U/L (17-59) 01/01/18 05:30 ALT 54 U/L (7-56) 01/01/18 05:30 Alkaline Phosphatase 66 U/L (38-126) 01/01/18 05:30 Troponin I < 0.01 ng/mL 01/01/18 05:30 Total Protein 6.5 g/dL (5.8-8.3) 01/01/18 05:30 Albumin 3.8 g/dL (3.0-4.8) 01/01/18 05:30 Globulin 2.7 gm/dL 01/01/18 05:30 Albumin/Globulin Ratio 1.4 (1.1-1.8) 01/01/18 05:30 Triglycerides 55 mg/dL (35-160) 12/31/17 08:00 Cholesterol 189 mg/dL (130-200) 12/31/17 08:00 LDL Cholesterol Direct 101 mg/dL (0-129) 12/31/17 08:00 HDL Cholesterol 82 mg/dL (29-60) H 12/31/17 08:00 Lipase 307 U/L (23-300) H 12/31/17 05:06 Urine Color Light yellow (YELLOW) 12/31/17 06:19 Urine Appearance Clear (CLEAR) 12/31/17 06:19 Urine pH 6.0 (4.7-8.0) 12/31/17 06:19 Ur Specific [place] 1.025 (1.005-1.035) 12/31/17 06:19 Urine Protein Negative mg/dL (<30 mg/dL) 12/31/17 06:19 Urine Glucose (UA) Negative mg/dL (NEGATIVE) 12/31/17 06:19 Urine Ketones Trace mg/dL (NEGATIVE) H 12/31/17 06:19 Urine Blood Small (NEGATIVE) H 12/31/17 06:19 Urine Nitrate Negative (NEGATIVE) 12/31/17 06:19 Urine Bilirubin Negative (NEGATIVE) 12/31/17 06:19 Urine Urobilinogen 0.2 E.U./dL (<1 E.U./dL) 12/31/17 06:19 Ur Leukocyte Esterase Negative Javier/uL (NEGATIVE) 12/31/17 06:19 Urine RBC 2 - 5 /hpf (0-2) 12/31/17 06:19 Urine WBC 0 - 2 /hpf (0-6) 12/31/17 06:19 Ur Epithelial Cells 0 - 2 /hpf (0-5) 12/31/17 06:19 Urine Bacteria Small (NEG) 12/31/17 06:19 Urine Other Usperm 12/31/17 06:19 Urine Opiates Screen Negative (NEGATIVE) 12/31/17 06:19 Urine Methadone Screen Negative (NEGATIVE) 12/31/17 06:19 Ur Barbiturates Screen Negative (NEGATIVE) 12/31/17 06:19 Ur Phencyclidine Scrn Negative (NEGATIVE) 12/31/17 06:19 Ur Amphetamines Screen Negative (NEGATIVE) 12/31/17 06:19 U Benzodiazepines Scrn Positive (NEGATIVE) H 12/31/17 06:19 U Oth Cocaine Metabols Negative (NEGATIVE) 12/31/17 06:19 U Cannabinoids Screen Positive (NEGATIVE) H 12/31/17 06:19 Alcohol, Quantitative < 10 mg/dL (0-10) 12/31/17 05:06 - Hospital Course Hospital Course: Upon Admission This is a 47 yo M with PMH of hypertension, hyperlipidema, anxiety, alcohol abuse, and hx of seizures with alcohol withdrawal who presented to [facility] [place] [facility] with complaint of anxiety, shortness of breath, and uncontrollable shaking while trying to sleep. Reports unable to fall asleep, which made him anxious, and then he noticed uncontrolled tremors in both hands and felt short of breath. He also complains of left shoulder pain travelling down his arm, not currently present, no clear trigger. Reports one episode of emesis after tremors began and persistent nausea, and denies hematemesis/bilious emesis; only describes emesis as "dark." Admits to chronic alcohol use (claims was off but started again, unable to state when restarted), up to 12 beers per day, but reports only 2 beers yesterday, last one at approx 4:30pm (1630). Denies current chest pain, shortness of breath, cough, hemoptysis, constipation, focal or generalized weakness, loss of sensation, vision changes. Admits to nausea, intermittent loose stools over last 2-3 days, and still some tremors present. Of note, patient was anxious throughout the interview and exam, asking if he was going to have a heart monitor while admitted, and when asked why, states his heart stopped once, and that he thinks he needs a pacemaker. Unable to provide further details about "heart stopping," including where and when it occurred. Also asked multiple times if med staff would be aware if he stopped breathing, stating that he stopped breathing once. Patient also poor historian, not able to relay what medications he is on, not sure what pharmacy he goes to. Hospital Admission During the hospital stay, the patient was treated for alcohol withdrawals, along with anxiety, tremors, shortness of breath, hypertension and hyperlipidemia. He was placed on alcohol withdrawal protocol which includes CIWA protocol, aspiration precautions, neuro checks and seizure precautions. He was also started on scheduled dose of librium along with prn doses of ativan. He was given IV fluids including folate, thiamine and multivitamins. Pt was also treated for his back pain with flexeril and warm compresses. He was treated for his history of hypertension with lisinopril. He was evaluated by a psychiatrist during his hospital stay, and all recommendations were appreciated. Upon Discharge Nursing had paged the on-call resident that patient wanted to sign out against medical advice. Upon interview, pt was alert & oriented and was not actively withdrawing. He was able to walk up and down the hallway safely. He had no suicidal or homocidal ideations. He denied visual/auditory hallucinations. He was explained, in detail, the benefits of hospital admission along with risks of signing out against medical advice. Pt agreed, and signed appropriate paperwork. Discharge Exam - Head Exam Head Exam: ATRAUMATIC, NORMAL INSPECTION Discharge Plan - Follow Up Plan Condition: GUARDED Disposition: AGAINST MEDICAL ADVICE Referrals: Billie Medina MD [Staff Provider] - Lolly Etienne MD [Primary Care Provider] - <Andrae Bah - Last Filed: 01/03/18 08:45> Provider - Provider Date of Admission: 12/31/17 06:12 Attending physician: Andrae Bah MD Primary care physician: Lolly Etienne MD Hospital Course - Lab Results Lab Results: Most Recent Lab Values WBC 7.8 10^3/ul (4.5-11.0) 01/01/18 05:30 RBC 4.51 10^6/uL (3.5-6.1) 01/01/18 05:30 Hgb 14.3 g/dL (14.0-18.0) 01/01/18 05:30 Hct 43.2 % (42.0-52.0) 01/01/18 05:30 MCV 95.8 fl (80.0-105.0) 01/01/18 05:30 MCH 31.7 pg (25.0-35.0) 01/01/18 05:30 MCHC 33.1 g/dl (31.0-37.0) 01/01/18 05:30 RDW 13.3 % (11.5-14.5) 01/01/18 05:30 Plt Count 303 10^3/uL (120.0-450.0) 01/01/18 05:30 MPV 8.7 fl (7.0-11.0) 01/01/18 05:30 Gran % 51.1 % (50.0-68.0) 01/01/18 05:30 Lymph % (Auto) 31.1 % (22.0-35.0) 01/01/18 05:30 Winkler % (Auto) 13.8 % (1.0-6.0) H 01/01/18 05:30 Eos % (Auto) 3.2 % (1.5-5.0) 01/01/18 05:30 Baso % (Auto) 0.8 % (0.0-3.0) 01/01/18 05:30 Gran # 4.01 (1.4-6.5) 01/01/18 05:30 Lymph # (Auto) 2.4 (1.2-3.4) 01/01/18 05:30 Winkler # (Auto) 1.1 (0.1-0.6) H 01/01/18 05:30 Eos # (Auto) 0.3 (0.0-0.7) 01/01/18 05:30 Baso # (Auto) 0.06 K/mm3 (0.0-2.0) 01/01/18 05:30 Sodium 135 mmol/L (132-148) 01/01/18 05:30 Potassium 4.1 mmol/L (3.6-5.0) 01/01/18 05:30 Chloride 104 mmol/L (98-107) 01/01/18 05:30 Carbon Dioxide 25 mmol/L (21-33) 01/01/18 05:30 Anion Gap 11 (10-20) 01/01/18 05:30 BUN 10 mg/dL (7-21) 01/01/18 05:30 Creatinine 0.8 mg/dl (0.8-1.5) 01/01/18 05:30 Est GFR ( Amer) > 60 01/01/18 05:30 Est GFR (Non-Af Amer) > 60 01/01/18 05:30 POC Glucose (mg/dL) 98 mg/dL (65-110) 12/31/17 05:05 Random Glucose 103 mg/dL (70-110) 01/01/18 05:30 Calcium 8.9 mg/dL (8.4-10.5) 01/01/18 05:30 Phosphorus 3.2 mg/dL (2.5-4.5) 01/01/18 05:30 Magnesium 2.3 mg/dL (1.7-2.2) H 01/01/18 05:30 Total Bilirubin 1.0 mg/dL (0.2-1.3) 01/01/18 05:30 AST 42 U/L (17-59) 01/01/18 05:30 ALT 54 U/L (7-56) 01/01/18 05:30 Alkaline Phosphatase 66 U/L (38-126) 01/01/18 05:30 Troponin I < 0.01 ng/mL 01/01/18 05:30 Total Protein 6.5 g/dL (5.8-8.3) 01/01/18 05:30 Albumin 3.8 g/dL (3.0-4.8) 01/01/18 05:30 Globulin 2.7 gm/dL 01/01/18 05:30 Albumin/Globulin Ratio 1.4 (1.1-1.8) 01/01/18 05:30 Triglycerides 55 mg/dL (35-160) 12/31/17 08:00 Cholesterol 189 mg/dL (130-200) 12/31/17 08:00 LDL Cholesterol Direct 101 mg/dL (0-129) 12/31/17 08:00 HDL Cholesterol 82 mg/dL (29-60) H 12/31/17 08:00 Lipase 307 U/L (23-300) H 12/31/17 05:06 Urine Color Light yellow (YELLOW) 12/31/17 06:19 Urine Appearance Clear (CLEAR) 12/31/17 06:19 Urine pH 6.0 (4.7-8.0) 12/31/17 06:19 Ur Specific [place] 1.025 (1.005-1.035) 12/31/17 06:19 Urine Protein Negative mg/dL (<30 mg/dL) 12/31/17 06:19 Urine Glucose (UA) Negative mg/dL (NEGATIVE) 12/31/17 06:19 Urine Ketones Trace mg/dL (NEGATIVE) H 12/31/17 06:19 Urine Blood Small (NEGATIVE) H 12/31/17 06:19 Urine Nitrate Negative (NEGATIVE) 12/31/17 06:19 Urine Bilirubin Negative (NEGATIVE) 12/31/17 06:19 Urine Urobilinogen 0.2 E.U./dL (<1 E.U./dL) 12/31/17 06:19 Ur Leukocyte Esterase Negative Javier/uL (NEGATIVE) 12/31/17 06:19 Urine RBC 2 - 5 /hpf (0-2) 12/31/17 06:19 Urine WBC 0 - 2 /hpf (0-6) 12/31/17 06:19 Ur Epithelial Cells 0 - 2 /hpf (0-5) 12/31/17 06:19 Urine Bacteria Small (NEG) 12/31/17 06:19 Urine Other Usperm 12/31/17 06:19 Urine Opiates Screen Negative (NEGATIVE) 12/31/17 06:19 Urine Methadone Screen Negative (NEGATIVE) 12/31/17 06:19 Ur Barbiturates Screen Negative (NEGATIVE) 12/31/17 06:19 Ur Phencyclidine Scrn Negative (NEGATIVE) 12/31/17 06:19 Ur Amphetamines Screen Negative (NEGATIVE) 12/31/17 06:19 U Benzodiazepines Scrn Positive (NEGATIVE) H 12/31/17 06:19 U Oth Cocaine Metabols Negative (NEGATIVE) 12/31/17 06:19 U Cannabinoids Screen Positive (NEGATIVE) H 12/31/17 06:19 Alcohol, Quantitative < 10 mg/dL (0-10) 12/31/17 05:06 Attending/Attestation - Attestation I have personally seen and examined this patient.: Yes I have fully participated in the care of the patient.: Yes I have reviewed all pertinent clinical information, including history, physical exam and plan: Yes Notes (Text): 01/03/18 08:42 Attending note; Patient seen and examined with resident during rounds. Patient is a 47-year-old male admitted for alcohol withdrawal symptoms and anxiety. Treated with IV banana bag. Currently symptoms resolving. continue to monitor with CIWA protocol. Patient is tolerating diet. Denies any nausea, vomiting. Ambulating without difficulty. Taper IV Ativan. Started on by mouth Librium. Patient with a history of anxiety; psychiatric evaluation requested. Patient will be monitored closely for withdrawal symptoms. Upon discharge patient will follow-up with PMD in [place]. Addendum; Patient signed AGAINST MEDICAL ADVICE. Patient was clinically stable at the time of AMA.
[2018-01-02] MEDS ORDERED: Multivitamin With Minerals Tab PO SCH (08:00)
== END 2018-01-01 17:45 | disposition left against medical advice (07) | DRG 749 ==
LOC: ED 04:33 → ERH 06:12 → 2RNO 07:54
PROVIDERS: ADMIT Internal Medicine; ATTEND Internal Medicine
DX: F10.239 Alcohol dependence with withdrawal, unspecified (principal); I10 Essential (primary) hypertension; E78.5 Hyperlipidemia, unspecified; F17.210 Nicotine dependence, cigarettes, uncomplicated; F41.9 Anxiety disorder, unspecified; G47.30 Sleep apnea, unspecified; Y90.0 Blood alcohol level of less than 20 mg/100 ml